=== PATIENT | female | born 1975 | race Caucasian/White ===

== ENCOUNTER → 2016-12-06 | Outpatient (REF) | payer OTHER ==
[2016-12-06 15:02] LABS: ALBUMIN 3.6 GM/DL (3.2-5.2); ALBUMIN/GLOBULIN RATIO 1.13 (1.00-1.93); ALKALINE PHOSPHATASE 123 U/L (45-117); ALT/SGPT 22 U/L (12-78); ANION GAP 10 MEQ/L (8-16); AST/SGOT 10 U/L (15-37); BILIRUBIN,TOTAL 0.3 MG/DL (0.2-1.0); BLOOD UREA NITROGEN 15 MG/DL (7-18); CALCIUM LEVEL 8.7 MG/DL (8.5-10.1); CARBON DIOXIDE LEVEL 26 MEQ/L (21-32); CHLORIDE LEVEL 104 MEQ/L (98-107); CHOLESTEROL LEVEL 151 MG/DL (<200); CREATININE FOR GFR 0.93 MG/DL (0.55-1.02); GLOMERULAR FILTRATION RATE > 60.0 (>58); GLUCOSE, FASTING 107 MG/DL (70-105); POTASSIUM SERUM 3.6 MEQ/L (3.5-5.1); SODIUM LEVEL 140 MEQ/L (136-145); TOTAL PROTEIN 6.8 GM/DL (6.4-8.2); TRIGLYCERIDES LEVEL 156 MG/DL (<150)
[2016-12-07 14:37] LABS: %CD3+CD4+CD8+ 0.7 % (Not Estab.); %CD3+CD4+CD8- 19.1 % (Not Estab.); %CD3+CD4-CD8+ 52.4 % (Not Estab.); %CD3+CD4-CD8- 0.8 % (Not Estab.); ABS CD3+CD4+CD8+ 8 /uL (Not Estab.); ABS CD3+CD4+CD8- 229 /uL (Not Estab.); ABS CD3+CD4-CD8+ 629 /uL (Not Estab.); ABS CD3+CD4-CD8- 10 /uL (Not Estab.); CD4/CD8 NYSDOH RATIO 0.36 (Not Estab.); Eosinophils 2 % (.); HCT 35.9 % (34.0-46.6); HGB 11.4 g/dL (11.1-15.9); Monocytes 7 % (.); Neutrophils 76 % (.); WBC 9.1 x10E3/uL (3.4-10.8)
== END ==
LOC: M SFHCPLAZ 11:37
PROVIDERS: ATTEND Internal Medicine Infectious Disease
DX: B20 Human immunodeficiency virus [HIV] disease (principal); Z11.3 Encounter for screening for infections with a predominantly sexual mode of transmission; Z98.84 Bariatric surgery status; E11.9 Type 2 diabetes mellitus without complications

== ENCOUNTER → 2017-06-06 | Outpatient (REF) | payer OTHER ==
[2017-06-06 14:13] LABS: ALBUMIN 3.4 GM/DL (3.2-5.2); ALBUMIN/GLOBULIN RATIO 0.97 (1.00-1.93); ALKALINE PHOSPHATASE 100 U/L (45-117); ALT/SGPT 14 U/L (12-78); ANION GAP 8 MEQ/L (8-16); AST/SGOT 7 U/L (15-37); BILIRUBIN,TOTAL 0.4 MG/DL (0.2-1.0); BLOOD UREA NITROGEN 14 MG/DL (7-18); CALCIUM LEVEL 8.6 MG/DL (8.5-10.1); CARBON DIOXIDE LEVEL 27 MEQ/L (21-32); CHLORIDE LEVEL 103 MEQ/L (98-107); CHOLESTEROL LEVEL 144 MG/DL (<200); GLOMERULAR FILTRATION RATE > 60.0 (>58); GLUCOSE, FASTING 98 MG/DL (70-105); POTASSIUM SERUM 4.1 MEQ/L (3.5-5.1); SODIUM LEVEL 138 MEQ/L (136-145); TOTAL PROTEIN 6.9 GM/DL (6.4-8.2); TRIGLYCERIDES LEVEL 143 MG/DL (<150)
[2017-06-06 14:16] LABS: FOLATE 18.4 NG/ML; VITAMIN B12 LEVEL 624 PG/ML
[2017-06-11 00:11] LABS: Eosinophils 3 % (Not Estab.); HCT 35.7 % (34.0-46.6); HGB 11.3 g/dL (11.1-15.9); Monocytes 9 % (Not Estab.); Neutrophils 74 % (Not Estab.); WBC 7.1 x10E3/uL (3.4-10.8)
== END ==
LOC: M SFHCPLAZ 09:40
PROVIDERS: ATTEND Internal Medicine Infectious Disease
DX: B20 Human immunodeficiency virus [HIV] disease (principal); E11.9 Type 2 diabetes mellitus without complications; Z98.84 Bariatric surgery status

== ENCOUNTER → 2018-05-05 | Outpatient (REF) | payer OTHER ==
[2018-05-05 12:53] LABS: TOTAL 25(OH) VITAMIN D 39.6 NG/ML (30.0-100.0)
[2018-05-06 00:46] LABS: ESTIMATED AVERAGE GLUCOSE 128 MG/DL (60-110); HEMOGLOBIN A1c 6.1 %
[2018-05-06 04:15] LABS: ALBUMIN 3.5 GM/DL (3.2-5.2); ALKALINE PHOSPHATASE 111 U/L (45-117); ALT/SGPT 17 U/L (12-78); AST/SGOT 10 U/L (7-37); BILIRUBIN,TOTAL 0.3 MG/DL (0.2-1.0); BLOOD UREA NITROGEN 19 MG/DL (7-18); CALCIUM LEVEL 8.9 MG/DL (8.5-10.1); CARBON DIOXIDE LEVEL 27 MEQ/L (21-32); CHLORIDE LEVEL 105 MEQ/L (98-107); CREATININE FOR GFR 0.96 MG/DL (0.55-1.30); GLOMERULAR FILTRATION RATE > 60.0 (>58); POTASSIUM SERUM 3.5 MEQ/L (3.5-5.1); SODIUM LEVEL 142 MEQ/L (136-145); TOTAL PROTEIN 6.7 GM/DL (6.4-8.2)
[2018-05-06 04:16] LABS: ALBUMIN/GLOBULIN RATIO 1.09 (1.00-1.93); ANION GAP 10 MEQ/L (8-16)
[2018-05-06 04:24] LABS: GLUCOSE, FASTING 111 MG/DL (70-100)
[2018-05-07 14:18] LABS: %CD4 Pos Lymphs 26.5 % (30.8-58.5); ABS Basophils 0.1 x10E3/uL (0.0-0.2); ABS Eosinophils 0.3 x10E3/uL (0.0-0.4); ABS Monocytes 0.6 x10E3/uL (0.1-0.9); ABS Neutophils 7.1 x10E3/uL (1.4-7.0); Abs CD4 Helper 265 /uL (359-1519); Abs CD8 Suppres 460 /uL (109-897); CD4/CD8 Ratio 0.58 (0.92-3.72); Eosinophils 3 % (Not Estab.); HCT 35.5 % (34.0-46.6); HGB 11.1 g/dL (11.1-15.9); HIV-1 RNA PCR QUANT 2 LC550285 <20 copies/mL (.); Immature Grans 0 % (Not Estab.); Lymphocytes 11 % (Not Estab.); MCHC 31.3 g/dL (31.5-35.7); MCV 77 fL (79-97); Monocytes 7 % (Not Estab.); Neutrophils 78 % (Not Estab.); Platelets 290 x10E3/uL (150-379); RBC 4.62 x10E6/uL (3.77-5.28); RDW 15.8 % (12.3-15.4)
== END ==
LOC: M SFHCPLAZ 09:31
DX: B20 Human immunodeficiency virus [HIV] disease (principal); E11.9 Type 2 diabetes mellitus without complications; E55.9 Vitamin D deficiency, unspecified

== ENCOUNTER → 2018-09-08 | Outpatient (REF) | payer OTHER ==
[2018-09-08 14:00] LABS: APPEARANCE, URINE HAZY (CLEAR); BACTERIA, URINE AUTO 1+ (NEGATIVE); BILIRUBIN, URINE AUTO NEGATIVE (NEGATIVE); BLOOD, URINE BLOOD 1+ (NEGATIVE); COLOR, URINE YELLOW (YELLOW); GLUCOSE, URINE (UA) AUTO NEGATIVE (NEGATIVE); KETONE, URINE AUTO NEGATIVE (NEGATIVE); LEUKOCYTE ESTERASE, URINE AUTO NEGATIVE (NEGATIVE); NITRITE, URINE AUTO NEGATIVE (NEGATIVE); PROTEIN, URINE AUTO NEGATIVE (NEGATIVE); RBC, URINE AUTO 5 /HPF (0-3); SPECIFIC GRAVITY URINE AUTO 1.012 (1.002-1.035); SQUAMOUS EPITHELIAL CELL UR AU 6 /HPF (0-6); UROBILINOGEN, URINE AUTO 0.2 mg/dL (0.0-2.0); WBC, URINE AUTO 1 /HPF (0-3)
[2018-09-08 14:32] LABS: ALBUMIN 3.4 GM/DL (3.2-5.2); ALT/SGPT 14 U/L (12-78); BILIRUBIN,TOTAL 0.4 MG/DL (0.2-1.0); BLOOD UREA NITROGEN 16 MG/DL (7-18); CALCIUM LEVEL 8.4 MG/DL (8.5-10.1); CARBON DIOXIDE LEVEL 25 MEQ/L (21-32); CHLORIDE LEVEL 103 MEQ/L (98-107); CHOLESTEROL LEVEL 157 MG/DL (<200); CHOLESTEROL RISK RATIO 2.907 (<5); CREATININE FOR GFR 1.03 MG/DL (0.55-1.30); GLOMERULAR FILTRATION RATE > 60.0 (>58); GLUCOSE, FASTING 121 MG/DL (70-100); HDL CHOLESTEROL 54 MG/DL (>40); LDL CHOLESTEROL 73 MG/DL (<100); NON-HDL-C 103 MG/DL; POTASSIUM SERUM 3.4 MEQ/L (3.5-5.1); SODIUM LEVEL 140 MEQ/L (136-145); TOTAL PROTEIN 6.8 GM/DL (6.4-8.2); TRIGLYCERIDES LEVEL 149 MG/DL (<150)
[2018-09-08 14:50] LABS: HEMOGLOBIN A1c 7.4 %
[2018-09-08 15:32] LABS: CHLAMYDIA DNA AMPLIFICATION NEGATIVE (NEGATIVE); GC DNA AMPLIFICATION NEGATIVE (NEGATIVE)
[2018-09-12 00:10] LABS: % CD8 Pos Lymph 41.3 % (12.0-35.5); %CD4 Pos Lymphs 28.9 % (30.8-58.5); ABS Basophils 0.1 x10E3/uL (0.0-0.2); ABS Eosinophils 0.2 x10E3/uL (0.0-0.4); ABS Lymphs 0.8 x10E3/uL (0.7-3.1); ABS Monocytes 0.6 x10E3/uL (0.1-0.9); ABS Neutophils 7.3 x10E3/uL (1.4-7.0); Abs CD4 Helper 231 /uL (359-1519); Abs CD8 Suppres 330 /uL (109-897); Eosinophils 2 % (Not Estab.); HCT 37.7 % (34.0-46.6); HGB 12.6 g/dL (11.1-15.9); HIV-1 RNA PCR QUANT 2 LC550285 <20 copies/mL (.); Imm ABS Grans 0.1 x10E3/uL (0.0-0.1); Immature Grans 1 % (Not Estab.); Lymphocytes 9 % (Not Estab.); MCH 24.4 pg (26.6-33.0); MCHC 33.4 g/dL (31.5-35.7); MCV 73 fL (79-97); Monocytes 7 % (Not Estab.); Neutrophils 80 % (Not Estab.); Platelets 313 x10E3/uL (150-379); RBC 5.16 x10E6/uL (3.77-5.28); RDW 16.1 % (12.3-15.4); WBC 9.1 x10E3/uL (3.4-10.8)
== END ==
LOC: M SFHCPLAZ 11:25
PROVIDERS: ATTEND Internal Medicine Infectious Disease
DX: B20 Human immunodeficiency virus [HIV] disease (principal); E11.9 Type 2 diabetes mellitus without complications

== ENCOUNTER → 2018-12-04 | Outpatient (REF) | payer OTHER ==
[2018-12-04 14:03] LABS: HEMOGLOBIN A1c 6.2 %
[2018-12-04 14:13] LABS: ALBUMIN 3.7 GM/DL (3.2-5.2); ALT/SGPT 15 U/L (12-78); BILIRUBIN,TOTAL 0.5 MG/DL (0.2-1.0); BLOOD UREA NITROGEN 21 MG/DL (7-18); C REACTIVE PROTEIN QUANTITATIV 0.86 MG/DL (0.00-0.30); CALCIUM LEVEL 8.9 MG/DL (8.5-10.1); CARBON DIOXIDE LEVEL 27 MEQ/L (21-32); CHLORIDE LEVEL 103 MEQ/L (98-107); CREATININE FOR GFR 0.91 MG/DL (0.55-1.30); GLOMERULAR FILTRATION RATE > 60.0 (>58); GLUCOSE, FASTING 118 MG/DL (70-100); POTASSIUM SERUM 3.2 MEQ/L (3.5-5.1); RHEUMATOID FACTOR QUANT < 10.0 IU/ML (<15.0); SODIUM LEVEL 138 MEQ/L (136-145); TOTAL PROTEIN 7.1 GM/DL (6.4-8.2)
[2018-12-10 00:59] LABS: % CD8 Pos Lymph 43.5 % (12.0-35.5); %CD4 Pos Lymphs 22.5 % (30.8-58.5); ABS Basophils 0.1 x10E3/uL (0.0-0.2); ABS Eosinophils 0.2 x10E3/uL (0.0-0.4); ABS Lymphs 0.9 x10E3/uL (0.7-3.1); ABS Monocytes 0.6 x10E3/uL (0.1-0.9); ABS Neutophils 5.8 x10E3/uL (1.4-7.0); ANTI DOUBLE STRAND-DNA AB 1 IU/mL (0-9); ANTINUCLEAR ANTIBODIES DIRECT Negative (Negative); Abs CD4 Helper 203 /uL (359-1519); Abs CD8 Suppres 392 /uL (109-897); CD4/CD8 Ratio 0.52 (0.92-3.72); Eosinophils 3 % (Not Estab.); HCT 37.3 % (34.0-46.6); HIV-1 RNA PCR QUANT 2 LC550285 <20 copies/mL (.); Imm ABS Grans 0.1 x10E3/uL (0.0-0.1); Immature Grans 1 % (Not Estab.); Lyme Disease IgG/IgM Antibodie <0.91 ISR (0.00-0.90); Lyme Disease IgM Ab Quantitati <0.80 index (0.00-0.79); Lymphocytes 11 % (Not Estab.); MCH 23.9 pg (26.6-33.0); MCHC 32.2 g/dL (31.5-35.7); MCV 74 fL (79-97); Monocytes 7 % (Not Estab.); Neutrophils 77 % (Not Estab.); Platelets 307 x10E3/uL (150-379); RBC 5.03 x10E6/uL (3.77-5.28); RDW 16.4 % (12.3-15.4); WBC 7.6 x10E3/uL (3.4-10.8)
== END ==
LOC: M SFHCPLAZ 11:01
PROVIDERS: ATTEND Internal Medicine Infectious Disease
DX: E11.9 Type 2 diabetes mellitus without complications (principal); B20 Human immunodeficiency virus [HIV] disease; M25.512 Pain in left shoulder

== ENCOUNTER → 2019-03-12 | Outpatient (CLI) | payer OTHER ==
[2019-03-12 15:00] LABS: HEMOGLOBIN A1c 6.4 %
[2019-03-12 16:07] LABS: CHLAMYDIA DNA AMPLIFICATION NEGATIVE (NEGATIVE); GC DNA AMPLIFICATION NEGATIVE (NEGATIVE)
[2019-03-17 00:07] LABS: % CD8 Pos Lymph 42.4 % (12.0-35.5); %CD4 Pos Lymphs 24.7 % (30.8-58.5); ABS Eosinophils 0.1 x10E3/uL (0.0-0.4); ABS Lymphs 1.2 x10E3/uL (0.7-3.1); ABS Monocytes 0.7 x10E3/uL (0.1-0.9); ABS Neutophils 7.4 x10E3/uL (1.4-7.0); Abs CD4 Helper 296 /uL (359-1519); Abs CD8 Suppres 509 /uL (109-897); CD4/CD8 Ratio 0.58 (0.92-3.72); Eosinophils 1 % (Not Estab.); HCT 36.4 % (34.0-46.6); HGB 11.7 g/dL (11.1-15.9); HIV-1 RNA PCR QUANT 2 LC550285 <20 copies/mL (.); Imm ABS Grans 0.1 x10E3/uL (0.0-0.1); Immature Grans 1 % (Not Estab.); Lymphocytes 12 % (Not Estab.); MCH 23.9 pg (26.6-33.0); MCHC 32.1 g/dL (31.5-35.7); MCV 74 fL (79-97); Monocytes 7 % (Not Estab.); Neutrophils 79 % (Not Estab.); Platelets 276 x10E3/uL (150-450); RBC 4.89 x10E6/uL (3.77-5.28); RDW 16.5 % (12.3-15.4); WBC 9.5 x10E3/uL (3.4-10.8)
== END ==
LOC: M LAB 13:05
PROVIDERS: ATTEND Internal Medicine Infectious Disease
DX: B20 Human immunodeficiency virus [HIV] disease (principal); E11.9 Type 2 diabetes mellitus without complications

== ENCOUNTER → 2019-03-12 | Outpatient (REF) | payer OTHER | LOC: M SFHCPLAZ 12:18 | PROVIDERS: ATTEND Internal Medicine Infectious Disease | DX: B20 Human immunodeficiency virus [HIV] disease (principal); E11.9 Type 2 diabetes mellitus without complications; Z53.9 Procedure and treatment not carried out, unspecified reason ==

== ENCOUNTER → 2019-07-14 | Outpatient (REF) | payer OTHER ==
[2019-07-14 13:29] LABS: APPEARANCE, URINE CLOUDY (CLEAR); BACTERIA, URINE AUTO 1+ (NEGATIVE); BILIRUBIN, URINE AUTO NEGATIVE (NEGATIVE); BLOOD, URINE BLOOD 1+ (NEGATIVE); COLOR, URINE YELLOW (YELLOW); GLUCOSE, URINE (UA) AUTO NEGATIVE (NEGATIVE); KETONE, URINE AUTO NEGATIVE (NEGATIVE); LEUKOCYTE ESTERASE, URINE AUTO 2+ (NEGATIVE); MUCUS, URINE SMALL (NEGATIVE); NITRITE, URINE AUTO NEGATIVE (NEGATIVE); PROTEIN, URINE AUTO NEGATIVE (NEGATIVE); RBC, URINE AUTO 9 /HPF (0-3); SPECIFIC GRAVITY URINE AUTO 1.025 (1.002-1.035); SQUAMOUS EPITHELIAL CELL UR AU 10 /HPF (0-6); UROBILINOGEN, URINE AUTO 0.2 mg/dL (0.0-2.0); WBC, URINE AUTO 16 /HPF (0-3)
[2019-07-14 13:47] LABS: HEMOGLOBIN A1c 5.9 %
[2019-07-14 13:59] LABS: HCG, SERUM QUALITATIVE NEGATIVE (NEGATIVE)
[2019-07-14 14:00] LABS: BLOOD UREA NITROGEN 19 MG/DL (7-18); CREATININE FOR GFR 0.96 MG/DL (0.55-1.30); GLUCOSE, FASTING 117 MG/DL (70-100)
[2019-07-14 14:01] LABS: ALBUMIN 3.7 GM/DL (3.2-5.2); ALT/SGPT 15 U/L (12-78); BILIRUBIN,TOTAL 0.5 MG/DL (0.2-1.0); CALCIUM LEVEL 10.4 MG/DL (8.5-10.1); CARBON DIOXIDE LEVEL 30 MEQ/L (21-32); CHLORIDE LEVEL 102 MEQ/L (98-107); CHOLESTEROL LEVEL 159 MG/DL (<200); CHOLESTEROL RISK RATIO 2.564 (<5); GLOMERULAR FILTRATION RATE > 60.0 (>58); HDL CHOLESTEROL 62 MG/DL (>40); LDL CHOLESTEROL 65 MG/DL (<100); NON-HDL-C 97 MG/DL; POTASSIUM SERUM 3.6 MEQ/L (3.5-5.1); SODIUM LEVEL 138 MEQ/L (136-145); TOTAL PROTEIN 7.2 GM/DL (6.4-8.2); TRIGLYCERIDES LEVEL 162 MG/DL (<150)
[2019-07-14 15:47] LABS: CHLAMYDIA DNA AMPLIFICATION NEGATIVE (NEGATIVE); GC DNA AMPLIFICATION NEGATIVE (NEGATIVE)
[2019-07-17 00:08] LABS: % CD8 Pos Lymph 47.6 % (12.0-35.5); %CD4 Pos Lymphs 22.5 % (30.8-58.5); ABS Basophils 0.1 x10E3/uL (0.0-0.2); ABS Eosinophils 0.2 x10E3/uL (0.0-0.4); ABS Lymphs 1.1 x10E3/uL (0.7-3.1); ABS Monocytes 0.8 x10E3/uL (0.1-0.9); Abs CD4 Helper 248 /uL (359-1519); Abs CD8 Suppres 524 /uL (109-897); CD4/CD8 Ratio 0.47 (0.92-3.72); Eosinophils 2 % (Not Estab.); HCT 39.8 % (34.0-46.6); HGB 12.6 g/dL (11.1-15.9); HIV-1 RNA PCR QUANT 2 LC550285 <20 copies/mL (.); Imm ABS Grans 0.1 x10E3/uL (0.0-0.1); Immature Grans 1 % (Not Estab.); Lymphocytes 10 % (Not Estab.); MCHC 31.7 g/dL (31.5-35.7); MCV 79 fL (79-97); Monocytes 8 % (Not Estab.); Neutrophils 78 % (Not Estab.); Platelets 279 x10E3/uL (150-450); RBC 5.03 x10E6/uL (3.77-5.28); RDW 15.2 % (12.3-15.4); WBC 10.2 x10E3/uL (3.4-10.8)
== END ==
LOC: M SFHCPLAZ 11:08
PROVIDERS: ATTEND Internal Medicine Infectious Disease
DX: B20 Human immunodeficiency virus [HIV] disease (principal); E11.9 Type 2 diabetes mellitus without complications; N91.2 Amenorrhea, unspecified

== ENCOUNTER → 2020-03-01 | Outpatient (REF) | payer OTHER ==
[2020-03-01 18:19] LABS: APPEARANCE, URINE HAZY (CLEAR); BACTERIA, URINE AUTO 1+ (NEGATIVE); BILIRUBIN, URINE AUTO NEGATIVE (NEGATIVE); BLOOD, URINE BLOOD NEGATIVE (NEGATIVE); COLOR, URINE YELLOW (YELLOW); GLUCOSE, URINE (UA) AUTO NEGATIVE (NEGATIVE); KETONE, URINE AUTO NEGATIVE (NEGATIVE); LEUKOCYTE ESTERASE, URINE AUTO TRACE (NEGATIVE); MUCUS, URINE SMALL (NEGATIVE); NITRITE, URINE AUTO NEGATIVE (NEGATIVE); PROTEIN, URINE AUTO NEGATIVE (NEGATIVE); RBC, URINE AUTO 3 /HPF (0-3); SPECIFIC GRAVITY URINE AUTO 1.021 (1.002-1.035); SQUAMOUS EPITHELIAL CELL UR AU 6 /HPF (0-6); UROBILINOGEN, URINE AUTO 0.2 mg/dL (0.0-2.0); WBC, URINE AUTO 3 /HPF (0-3)
[2020-03-01 18:30] LABS: ALBUMIN 3.8 GM/DL (3.2-5.2); ALT/SGPT 21 U/L (12-78); BILIRUBIN,TOTAL 0.6 MG/DL (0.2-1.0); BLOOD UREA NITROGEN 17 MG/DL (7-18); CALCIUM LEVEL 9.1 MG/DL (8.5-10.1); CARBON DIOXIDE LEVEL 26 MEQ/L (21-32); CHLORIDE LEVEL 106 MEQ/L (98-107); CHOLESTEROL LEVEL 177 MG/DL (<200); CREATININE FOR GFR 0.98 MG/DL (0.55-1.30); FREE T4 1.08 NG/DL (0.76-1.46); GLOMERULAR FILTRATION RATE > 60.0 (>58); GLUCOSE, FASTING 93 MG/DL (70-100); HDL CHOLESTEROL 59 MG/DL (>40); LDL CHOLESTEROL 85 MG/DL (<100); NON-HDL-C 118 MG/DL; POTASSIUM SERUM 3.6 MEQ/L (3.5-5.1); SODIUM LEVEL 137 MEQ/L (136-145); TOTAL PROTEIN 7.4 GM/DL (6.4-8.2); TRIGLYCERIDES LEVEL 165 MG/DL (<150)
[2020-03-01 19:39] LABS: HEMOGLOBIN A1c 6.3 %
[2020-03-01 20:22] LABS: CHLAMYDIA DNA AMPLIFICATION NEGATIVE (NEGATIVE); GC DNA AMPLIFICATION NEGATIVE (NEGATIVE)
[2020-03-06 12:07] LABS: % CD8 Pos Lymph 57.6 % (12.0-35.5); %CD4 Pos Lymphs 19.6 % (30.8-58.5); ABS Basophils 0.1 x10E3/uL (0.0-0.2); ABS Eosinophils 0.1 x10E3/uL (0.0-0.4); ABS Lymphs 1.2 x10E3/uL (0.7-3.1); ABS Monocytes 0.7 x10E3/uL (0.1-0.9); ABS Neutophils 7.6 x10E3/uL (1.4-7.0); Abs CD4 Helper 235 /uL (359-1519); Abs CD8 Suppres 691 /uL (109-897); CD4/CD8 Ratio 0.34 (0.92-3.72); Eosinophils 1 % (Not Estab.); HCT 42.2 % (34.0-46.6); HGB 12.9 g/dL (11.1-15.9); HIV-1 RNA PCR QUANT 2 LC550285 <20 copies/mL (.); Imm ABS Grans 0.1 x10E3/uL (0.0-0.1); Immature Grans 1 % (Not Estab.); Lymphocytes 12 % (Not Estab.); MCHC 30.6 g/dL (31.5-35.7); MCV 82 fL (79-97); Monocytes 7 % (Not Estab.); Neutrophils 78 % (Not Estab.); Platelets 341 x10E3/uL (150-450); RBC 5.16 x10E6/uL (3.77-5.28); RDW 13.9 % (11.7-15.4); WBC 9.7 x10E3/uL (3.4-10.8)
== END ==
LOC: M SFHCPLAZ 14:04
PROVIDERS: ATTEND Internal Medicine Infectious Disease
DX: B20 Human immunodeficiency virus [HIV] disease (principal); E11.9 Type 2 diabetes mellitus without complications

== ENCOUNTER → 2020-03-01 | Outpatient (CLI) | payer OTHER ==
[2020-03-01 18:35] LABS: THYROID STIMULATING HORMONE 1.23 uIU/ML (0.358-3.740)
== END ==
LOC: M PLALAB 14:05
PROVIDERS: ATTEND Psychiatry & Neurology Neurology
DX: G93.2 Benign intracranial hypertension (principal)

== ENCOUNTER → 2020-07-07 | Outpatient (REF) | payer OTHER ==
[2020-07-07 16:36] LABS: ALBUMIN 3.5 GM/DL (3.2-5.2); ALT/SGPT 13 U/L (12-78); BILIRUBIN,TOTAL 0.4 MG/DL (0.2-1.0); BLOOD UREA NITROGEN 18 MG/DL (7-18); CALCIUM LEVEL 8.9 MG/DL (8.5-10.1); CARBON DIOXIDE LEVEL 27 MEQ/L (21-32); CHLORIDE LEVEL 102 MEQ/L (98-107); CHOLESTEROL LEVEL 164 MG/DL (<200); CHOLESTEROL RISK RATIO 2.877 (<5); CREATININE FOR GFR 0.94 MG/DL (0.55-1.30); GLOMERULAR FILTRATION RATE > 60.0 (>58); GLUCOSE, FASTING 121 MG/DL (70-100); HDL CHOLESTEROL 57 MG/DL (>40); LDL CHOLESTEROL 85 MG/DL (<100); NON-HDL-C 107 MG/DL; POTASSIUM SERUM 3.4 MEQ/L (3.5-5.1); SODIUM LEVEL 139 MEQ/L (136-145); TOTAL PROTEIN 6.8 GM/DL (6.4-8.2); TRIGLYCERIDES LEVEL 112 MG/DL (<150)
[2020-07-07 16:44] LABS: MALB URINE SIEMENS 7.3 MG/L
[2020-07-12 00:17] LABS: % CD8 Pos Lymph 50.6 % (12.0-35.5); %CD4 Pos Lymphs 24.4 % (30.8-58.5); ABS Basophils 0.1 x10E3/uL (0.0-0.2); ABS Eosinophils 0.2 x10E3/uL (0.0-0.4); ABS Lymphs 1.2 x10E3/uL (0.7-3.1); ABS Monocytes 0.6 x10E3/uL (0.1-0.9); ABS Neutophils 7.3 x10E3/uL (1.4-7.0); Abs CD4 Helper 293 /uL (359-1519); Abs CD8 Suppres 607 /uL (109-897); CD4/CD8 Ratio 0.48 (0.92-3.72); Eosinophils 2 % (Not Estab.); HCT 39.5 % (34.0-46.6); HGB 12.4 g/dL (11.1-15.9); HIV-1 RNA PCR QUANT 2 LC550285 <20 copies/mL (.); Imm ABS Grans 0.1 x10E3/uL (0.0-0.1); Immature Grans 1 % (Not Estab.); Lymphocytes 12 % (Not Estab.); MCH 24.2 pg (26.6-33.0); MCHC 31.4 g/dL (31.5-35.7); MCV 77 fL (79-97); Monocytes 6 % (Not Estab.); Neutrophils 78 % (Not Estab.); Platelets 297 x10E3/uL (150-450); RBC 5.12 x10E6/uL (3.77-5.28); RDW 14.4 % (11.7-15.4); WBC 9.5 x10E3/uL (3.4-10.8)
== END ==
LOC: M SFHCPLAZ 11:49
PROVIDERS: ATTEND Internal Medicine Infectious Disease
DX: B20 Human immunodeficiency virus [HIV] disease (principal); E11.9 Type 2 diabetes mellitus without complications

== ENCOUNTER 2020-11-25 15:15 | Outpatient (CLI) | payer OTHER ==
[~2020-11-25] VITALS: Ht 152.4 cm; Wt 122.9 kg
[~2020-11-25 15:15] MED LIST: ACETAMINOPHEN TAB 650MG DOSE (2X325MG) PO ONE; ALBUTEROL 90 MCG/ACT 8GM HFA INHALER INH PRN; ALBUTEROL SULFATE 2.5 MG/0.5 ML INH NEB SOLN INH PRN; CASIRIVIMAB (REGN10933) 1,200 MG, IMDEVIMAB (REGN10987) 1,200 MG in NS 230 ML IV ONE; EPINEPHrine INJ 1 MG/ML 1ML AMP IM PRN; diphenhydrAMINE 50MG CAP PO ONE; diphenhydrAMINE 50MG/ML VIAL (J1200) IV PRN; methylPREDNISolone 125MG 2ML VIAL IV PRN
[2020-11-25] MEDS: NS 1,000 ML IV SCH ×2 (15:15→16:18)
[2020-11-25 15:35] VITALS: BP 116/72
[2020-11-25 16:50] VITALS: BP 106/60
[2020-11-25 17:25] VITALS: BP 100/59
[2020-11-25 18:00] VITALS: BP 107/71
[2020-11-25 18:57] VITALS: BP 112/53
[2020-11-25 19:57] VITALS: BP 130/88
== END 2020-11-25 20:08 | disposition home or self-care (01) ==
LOC: M 4MAIN 15:15 → M OPCLI4PR 15:15
PROVIDERS: ATTEND Internal Medicine Infectious Disease
DX: U07.1 COVID-19 (principal); Z88.8 Allergy status to other drugs, medicaments and biological substances
CPT/HCPCS: 96374; M0243

== ENCOUNTER → 2020-12-13 | Outpatient (REF) | payer OTHER ==
[2020-12-13 16:33] LABS: ALBUMIN 3.5 GM/DL (3.2-5.2); ALT/SGPT 15 U/L (12-78); BILIRUBIN,TOTAL 0.5 MG/DL (0.2-1.0); BLOOD UREA NITROGEN 19 MG/DL (7-18); CARBON DIOXIDE LEVEL 29 MEQ/L (21-32); CHLORIDE LEVEL 105 MEQ/L (98-107); CREATININE FOR GFR 0.82 MG/DL (0.55-1.30); GLOMERULAR FILTRATION RATE > 60.0 (>58); GLUCOSE, FASTING 109 MG/DL (70-100); POTASSIUM SERUM 3.1 MEQ/L (3.5-5.1); SODIUM LEVEL 140 MEQ/L (136-145); TOTAL PROTEIN 6.8 GM/DL (6.4-8.2)
[2020-12-13 16:42] LABS: FOLATE 6.7 NG/ML; TOTAL 25(OH) VITAMIN D 14.5 NG/ML (30.0-100.0); VITAMIN B12 LEVEL 408 PG/ML
[2020-12-13 17:28] LABS: HEMOGLOBIN A1c 6.3 %
[2020-12-15 17:10] LABS: % CD8 Pos Lymph 47.1 % (12.0-35.5); %CD4 Pos Lymphs 25.4 % (30.8-58.5); ABS Basophils 0.1 x10E3/uL (0.0-0.2); ABS Eosinophils 0.3 x10E3/uL (0.0-0.4); ABS Monocytes 0.6 x10E3/uL (0.1-0.9); ABS Neutophils 7.5 x10E3/uL (1.4-7.0); Abs CD4 Helper 254 /uL (359-1519); Abs CD8 Suppres 471 /uL (109-897); CD4/CD8 Ratio 0.54 (0.92-3.72); Eosinophils 3 % (Not Estab.); HCT 37.4 % (34.0-46.6); HGB 11.9 g/dL (11.1-15.9); HIV-1 RNA PCR QUANT 2 LC550285 <20 copies/mL (.); Imm ABS Grans 0.2 x10E3/uL (0.0-0.1); Immature Grans 2 % (Not Estab.); Lymphocytes 11 % (Not Estab.); MCH 24.5 pg (26.6-33.0); MCHC 31.8 g/dL (31.5-35.7); MCV 77 fL (79-97); Monocytes 6 % (Not Estab.); Neutrophils 77 % (Not Estab.); Platelets 295 x10E3/uL (150-450); RBC 4.85 x10E6/uL (3.77-5.28); RDW 14.4 % (11.7-15.4); WBC 9.6 x10E3/uL (3.4-10.8)
== END ==
LOC: M SFHCPLAZ 13:35
PROVIDERS: ATTEND Internal Medicine Infectious Disease
DX: B20 Human immunodeficiency virus [HIV] disease (principal); E11.9 Type 2 diabetes mellitus without complications; Z98.84 Bariatric surgery status

== ENCOUNTER → 2021-06-13 | Outpatient (CLI) | payer OTHER ==
[2021-06-13 18:15] LABS: ALBUMIN 3.3 GM/DL (3.2-5.2); ALT/SGPT 14 U/L (12-78); BILIRUBIN,TOTAL 0.4 MG/DL (0.2-1.0); BLOOD UREA NITROGEN 16 MG/DL (7-18); CALCIUM LEVEL 8.8 MG/DL (8.5-10.1); CARBON DIOXIDE LEVEL 28 MEQ/L (21-32); CHLORIDE LEVEL 104 MEQ/L (98-107); CREATININE FOR GFR 0.99 MG/DL (0.55-1.30); GLOMERULAR FILTRATION RATE > 60.0 (>58); GLUCOSE, FASTING 97 MG/DL (70-100); POTASSIUM SERUM 3.6 MEQ/L (3.5-5.1); SODIUM LEVEL 138 MEQ/L (136-145); TOTAL PROTEIN 6.8 GM/DL (6.4-8.2)
[2021-06-14 00:05] LABS: GC DNA AMPLIFICATION NEGATIVE (NEGATIVE)
== END ==
LOC: M PLALAB 14:20
PROVIDERS: ATTEND Internal Medicine Infectious Disease
DX: B20 Human immunodeficiency virus [HIV] disease (principal)

== ENCOUNTER → 2021-12-12 | Outpatient (REF) | payer OTHER ==
[2021-12-12 18:26] LABS: APPEARANCE, URINE CLEAR (CLEAR); BACTERIA, URINE AUTO 1+ (NEGATIVE); BILIRUBIN, URINE AUTO NEGATIVE (NEGATIVE); BLOOD, URINE BLOOD NEGATIVE (NEGATIVE); COLOR, URINE YELLOW (YELLOW); GLUCOSE, URINE (UA) AUTO NEGATIVE (NEGATIVE); KETONE, URINE AUTO NEGATIVE (NEGATIVE); LEUKOCYTE ESTERASE, URINE AUTO NEGATIVE (NEGATIVE); MUCUS, URINE SMALL (NEGATIVE); NITRITE, URINE AUTO NEGATIVE (NEGATIVE); PROTEIN, URINE AUTO NEGATIVE (NEGATIVE); RBC, URINE AUTO 0 /HPF (0-3); SPECIFIC GRAVITY URINE AUTO 1.023 (1.002-1.035); SQUAMOUS EPITHELIAL CELL UR AU 1 /HPF (0-6); UROBILINOGEN, URINE AUTO 0.2 mg/dL (0.0-2.0); WBC, URINE AUTO 5 /HPF (0-3)
== END ==
LOC: M SFHCPLAZ 17:23
PROVIDERS: ATTEND Internal Medicine Infectious Disease
DX: R10.9 Unspecified abdominal pain (principal)

== ENCOUNTER → 2021-12-12 | Outpatient (CLI) | payer OTHER ==
[2021-12-12 16:56] LABS: ALBUMIN 3.4 GM/DL (3.2-5.2); ALT/SGPT 21 U/L (12-78); BILIRUBIN,TOTAL 0.5 MG/DL (0.2-1.0); BLOOD UREA NITROGEN 20 MG/DL (7-18); CALCIUM LEVEL 8.7 MG/DL (8.5-10.1); CARBON DIOXIDE LEVEL 29 MEQ/L (21-32); CHLORIDE LEVEL 105 MEQ/L (98-107); CREATININE FOR GFR 0.91 MG/DL (0.55-1.30); GLOMERULAR FILTRATION RATE > 60.0 (>58); GLUCOSE, FASTING 117 MG/DL (70-100); HCG, SERUM QUALITATIVE NEGATIVE (NEGATIVE); POTASSIUM SERUM 3.2 MEQ/L (3.5-5.1); SODIUM LEVEL 140 MEQ/L (136-145); TOTAL PROTEIN 6.7 GM/DL (6.4-8.2)
[2021-12-14 16:12] LABS: % CD8 Pos Lymph 46.9 % (12.0-35.5); %CD4 Pos Lymphs 26.1 % (30.8-58.5); ABS Basophils 0.1 x10E3/uL (0.0-0.2); ABS Eosinophils 0.2 x10E3/uL (0.0-0.4); ABS Lymphs 1.2 x10E3/uL (0.7-3.1); ABS Monocytes 0.7 x10E3/uL (0.1-0.9); ABS Neutophils 6.7 x10E3/uL (1.4-7.0); Abs CD4 Helper 313 /uL (359-1519); Abs CD8 Suppres 563 /uL (109-897); CD4/CD8 Ratio 0.56 (0.92-3.72); Eosinophils 2 % (Not Estab.); HIV-1 RNA PCR QUANT 2 LC550285 <20 copies/mL (.); Imm ABS Grans 0.1 x10E3/uL (0.0-0.1); Immature Grans 1 % (Not Estab.); Lymphocytes 13 % (Not Estab.); MCH 23.9 pg (26.6-33.0); MCHC 31.6 g/dL (31.5-35.7); MCV 76 fL (79-97); Monocytes 8 % (Not Estab.); Neutrophils 75 % (Not Estab.); Platelets 281 x10E3/uL (150-450); RBC 5.03 x10E6/uL (3.77-5.28); RDW 15.2 % (11.7-15.4); WBC 8.9 x10E3/uL (3.4-10.8)
== END ==
LOC: M PLALAB 14:43
PROVIDERS: ATTEND Internal Medicine Infectious Disease
DX: B20 Human immunodeficiency virus [HIV] disease (principal); R10.9 Unspecified abdominal pain

== ENCOUNTER → 2022-06-12 | Outpatient (CLI) | payer OTHER ==
[2022-06-12 18:21] LABS: ALBUMIN 3.7 GM/DL (3.2-5.2); ALT/SGPT 19 U/L (12-78); BILIRUBIN,TOTAL 0.6 MG/DL (0.2-1.0); BLOOD UREA NITROGEN 14 MG/DL (7-18); CALCIUM LEVEL 9.2 MG/DL (8.5-10.1); CARBON DIOXIDE LEVEL 29 MEQ/L (21-32); CHLORIDE LEVEL 102 MEQ/L (98-107); CREATININE FOR GFR 0.76 MG/DL (0.55-1.30); GLOMERULAR FILTRATION RATE > 60.0 (>58); GLUCOSE, FASTING 93 MG/DL (70-100); POTASSIUM SERUM 3.8 MEQ/L (3.5-5.1); SODIUM LEVEL 138 MEQ/L (136-145)
== END ==
LOC: M PLALAB 14:16
PROVIDERS: ATTEND Internal Medicine Infectious Disease
DX: B20 Human immunodeficiency virus [HIV] disease (principal)

== ENCOUNTER → 2023-11-14 | Outpatient (CLI) | payer OTHER ==
[2023-11-14 16:31] LABS: ALBUMIN 3.6 G/DL (3.2-5.2); ALKALINE PHOSPHATASE 71 U/L (46-116); ALT/SGPT 30 U/L (7.0-40); AST/SGOT 15 U/L (<34); BILIRUBIN,TOTAL 0.9 MG/DL (0.3-1.2); BLOOD UREA NITROGEN 15 MG/DL (9-23); CALCIUM LEVEL 8.9 MG/DL (8.5-10.1); CARBON DIOXIDE LEVEL 28 MMOL/L (20-31); CHLORIDE LEVEL 105 MMOL/L (98-107); CREATININE FOR GFR 0.72 MG/DL (0.55-1.30); GLOMERULAR FILTRATION RATE > 60.0 (>58); GLUCOSE, FASTING 90 MG/DL (60-100); POTASSIUM SERUM 4.2 MMOL/L (3.5-5.1); SODIUM LEVEL 138 MMOL/L (136-145); TOTAL PROTEIN 6.3 G/DL (5.7-8.2)
== END ==
LOC: M PLALAB 14:01
PROVIDERS: ATTEND Internal Medicine Infectious Disease
DX: B20 Human immunodeficiency virus [HIV] disease (principal)

== ENCOUNTER → 2024-05-14 | Outpatient (CLI) | payer OTHER ==
[2024-05-14 16:32] LABS: ALBUMIN 3.6 G/DL (3.2-5.2); ALKALINE PHOSPHATASE 85 U/L (46-116); ALT/SGPT 18 U/L (7.0-40); AST/SGOT 10 U/L (<34); BILIRUBIN,TOTAL 0.6 MG/DL (0.3-1.2); BLOOD UREA NITROGEN 18 MG/DL (9-23); CARBON DIOXIDE LEVEL 27 MMOL/L (20-31); CHLORIDE LEVEL 107 MMOL/L (98-107); CREATININE FOR GFR 0.79 MG/DL (0.55-1.30); GLOMERULAR FILTRATION RATE > 60.0 (>58); GLUCOSE, FASTING 82 MG/DL (60-100); POTASSIUM SERUM 4.1 MMOL/L (3.5-5.1); SODIUM LEVEL 141 MMOL/L (136-145); TOTAL PROTEIN 6.8 G/DL (5.7-8.2)
[2024-05-15 09:08] LABS: % CD4+ LYMPHS 24.8 % (30.8-58.5); ABSOLUTE CD4 HELPER 372 /uL (359-1519); BASOPHILS 1 % (Not Estab.); BASOPHILS ABSOLUTE 0.1 x10E3/uL (0.0-0.2); EOSINOPHILS 4 % (Not Estab.); EOSINOPHILS ABSOLUTE 0.3 x10E3/uL (0.0-0.4); HGB 12.2 g/dL (11.1-15.9); LYMPHOCYTES 17 % (Not Estab.); LYMPHOCYTES ABSOLUTE 1.5 x10E3/uL (0.7-3.1); MCH 24.1 pg (26.6-33.0); MCHC 30.5 g/dL (31.5-35.7); MCV 79 fL (79-97); MONOCYTES 7 % (Not Estab.); MONOCYTES ABSOLUTE 0.6 x10E3/uL (0.1-0.9); NEUTROPHILS 70 % (Not Estab.); NEUTROPHILS ABSOLUTE 5.9 x10E3/uL (1.4-7.0); PLT 295 x10E3/uL (150-450); RBC 5.06 x10E6/uL (3.77-5.28); RDW 15.4 % (11.7-15.4); WBC 8.5 x10E3/uL (3.4-10.8)
== END ==
LOC: M PLALAB 13:58
PROVIDERS: ATTEND Internal Medicine Infectious Disease
DX: B20 Human immunodeficiency virus [HIV] disease (principal)

== ENCOUNTER → 2024-11-12 | Outpatient (CLI) | payer OTHER ==
[2024-11-12 17:26] LABS: ALBUMIN 3.5 G/DL (3.2-5.2); ALKALINE PHOSPHATASE 88 U/L (35-104); ALT/SGPT 19 U/L (7.0-40); AST/SGOT 10 U/L (<34); BILIRUBIN,TOTAL 0.4 MG/DL (0.3-1.2); BLOOD UREA NITROGEN 18 MG/DL (9-23); CALCIUM LEVEL 9.1 MG/DL (8.5-10.1); CARBON DIOXIDE LEVEL 25 MMOL/L (20-31); CHLORIDE LEVEL 105 MMOL/L (98-107); CREATININE FOR GFR 0.75 MG/DL (0.55-1.30); GLOMERULAR FILTRATION RATE > 60.0 (>58); GLUCOSE, FASTING 116 MG/DL (60-100); POTASSIUM SERUM 3.9 MMOL/L (3.5-5.1); SODIUM LEVEL 142 MMOL/L (136-145); TOTAL PROTEIN 6.8 G/DL (5.7-8.2)
== END ==
LOC: M PLALAB 13:11
PROVIDERS: ATTEND Internal Medicine Infectious Disease
DX: B20 Human immunodeficiency virus [HIV] disease (principal)

== ENCOUNTER → 2025-05-13 | Outpatient (CLI) | payer OTHER ==
[2025-05-13 16:22] LABS: APPEARANCE, URINE HAZY (CLEAR); BACTERIA, URINE AUTO NEGATIVE (NEGATIVE); BILIRUBIN, URINE AUTO NEGATIVE (NEGATIVE); BLOOD, URINE BLOOD NEGATIVE (NEGATIVE); GLUCOSE, URINE (UA) AUTO NEGATIVE (NEGATIVE); KETONE, URINE AUTO NEGATIVE (NEGATIVE); LEUKOCYTE ESTERASE, URINE AUTO NEGATIVE (NEGATIVE); MUCUS, URINE SMALL (NEGATIVE); NITRITE, URINE AUTO NEGATIVE (NEGATIVE); PROTEIN, URINE AUTO NEGATIVE (NEGATIVE); RBC, URINE AUTO 0 /HPF (0-3); SPECIFIC GRAVITY URINE AUTO 1.026 (1.002-1.035); SQUAMOUS EPITHELIAL CELL UR AU 2 /HPF (0-6); UROBILINOGEN, URINE AUTO 2.0 mg/dL (0.0-2.0); WBC, URINE AUTO 0 /HPF (0-3)
[2025-05-13 16:41] LABS: LUTEINIZING HORMONE 23.6 mIU/ML
[2025-05-13 16:43] LABS: ALT/SGPT 13 U/L (7.0-40); AST/SGOT 11 U/L (<34); CALCIUM LEVEL 9.3 MG/DL (8.5-10.1); CARBON DIOXIDE LEVEL 25 MMOL/L (20-31); CHLORIDE LEVEL 103 MMOL/L (98-107); CHOLESTEROL LEVEL 170 MG/DL (<200); CHOLESTEROL RISK RATIO 2.55 (<5); CREATININE FOR GFR 0.83 MG/DL (0.55-1.30); GLOMERULAR FILTRATION RATE 86.9 (>58); LDL CHOLESTEROL 80.4 MG/DL (<100); NON-HDL-C 103.4 MG/DL; POTASSIUM SERUM 4.0 MMOL/L (3.5-5.1); SODIUM LEVEL 138 MMOL/L (136-145); TRIGLYCERIDES LEVEL 115 MG/DL (<150)
[2025-05-13 17:04] LABS: HCG, SERUM QUALITATIVE NEGATIVE (NEGATIVE)
[2025-05-13 17:40] LABS: GC DNA AMPLIFICATION NEGATIVE (NEGATIVE)
== END ==
LOC: M PLALAB 13:52
PROVIDERS: ATTEND Internal Medicine Infectious Disease
DX: B20 Human immunodeficiency virus [HIV] disease (principal); N91.2 Amenorrhea, unspecified